=== PATIENT | male | born 1940 | race Caucasian/White ===

== ENCOUNTER 2018-06-08 16:43 | Emergency (ER) | payer MEDICARE, OTHER ==
[~2018-06-08] VITALS: Ht 172.7 cm; Wt 58.5 kg
[2018-06-08] MEDS ORDERED: levoFLOXACIN-Levaquin 750MG/D5 150 ML IV STA (19:39)
[2018-06-08] MEDS ORDERED: albuterol 2.5 MG/3 ML nebule NEB ONE (19:40)
[2018-06-08] MEDS ORDERED: ipratropium/albuterol 3ml nebule NEB ONE (19:40)
[2018-06-08] MEDS ORDERED: normal saline 1000ml 1,000 ML IV ONE (19:40)
[2018-06-08] MEDS ORDERED: methylPREDNISolone sod succ 125mg/2ml vial IV ONE (19:40)
[2018-06-08 20:04] LABS: BASOPHILS # (AUTO) 0.1 X10'3 (0-0.2); BASOPHILS % (AUTO) 0.6 % (0-1); EOSINOPHILS # (AUTO) 0.3 X10'3 (0-0.9); EOSINOPHILS % (AUTO) 2.4 % (0-6); HEMATOCRIT 43.2 % (42.0-52.0); HEMOGLOBIN 14.4 g/dl (14.0-17.9); LYMPHOCYTES # (AUTO) 1.9 X10'3 (1.1-4.8); LYMPHOCYTES % (AUTO) 13.5 % (21-51); MEAN CORPUSCULAR HGB CONC 33.3 % (33.0-36.5); MEAN CORPUSCULAR VOLUME 87.1 FL (78-98); MEAN PLATELET VOLUME 8.6 FL (7.4-10.4); MONOCYTES % (AUTO) 6.9 % (2-12); NEUTROPHILS # (AUTO) 10.6 X10'3 (1.8-7.7); NEUTROPHILS % (AUTO) 76.6 % (42-75); PLATELET COUNT 241 X10'3 (140-440); RED BLOOD COUNT 4.96 X10'6 (4.70-6.10); RED CELL DISTRIBUTION WIDTH 13.1 % (11.5-14.5); WHITE BLOOD COUNT 13.8 X10'3 (4.5-11.0)
[2018-06-08 20:22] LABS: ALANINE AMINOTRANSFERASE 23 U/L (12-78); ALBUMIN 4.1 G/DL (3.4-5.0); ALBUMIN/GLOBULIN RATIO 1.3 (1.1-1.5); ALKALINE PHOSPHATASE 96 IU/L (46-116); ANION GAP 10 (8-16); ASPARTATE AMINO TRANSFERASE 16 U/L (10-37); BILIRUBIN,TOTAL 0.5 MG/DL (0.1-1.0); BLOOD UREA NITROGEN 16 MG/DL (7-18); BUN/CREATININE RATIO 10.1 (5.4-32.0); CALCIUM 9.3 MG/DL (8.5-10.1); CHLORIDE 107 MMOL/L (99-107); CREATININE 1.59 MG/DL (0.60-1.10); GLUCOSE 119 MG/DL (70-104); SODIUM 143 MMOL/L (135-145); TOTAL CARBON DIOXIDE 25.8 MMOL/L (24-32); TOTAL PROTEIN 7.3 G/DL (6.4-8.2); eGFR 42 ML/MIN
[2018-06-08 21:12] VITALS: BP 112/39
[2018-06-08] MEDS ORDERED: ALBU8.5H8 INH (22:20)
[2018-06-08] MEDS ORDERED: BUDE10.2 INH (22:20)
[2018-06-08] MEDS ORDERED: LEVO750T21 PO (22:20)
[2018-06-08] MEDS ORDERED: ALB0.5UD IH (22:20)
[2018-06-08] MEDS ORDERED: PRED20TA PO (22:20)
[2018-06-08] MEDS ORDERED: triamcinolone acetonide 40mg/ml inj IM ONE (22:20)
[2018-06-08] MEDS ORDERED: [UNRECOGNIZED DRUG - CODE] (22:20)
== END 2018-06-08 22:53 | disposition home or self-care (01) ==
LOC: ER 16:44
DX: J44.1 Chronic obstructive pulmonary disease with (acute) exacerbation (principal); Z88.2 Allergy status to sulfonamides; Z79.899 Other long term (current) drug therapy
CPT/HCPCS: 36415; 71046; 80053; 85025; 85610; 93005; 94640; 94760; 96365; 96366; 96372; 96375; 99285; J1956; J2930; J3301; J7030